=== PATIENT | male | born 1955 | race Two or more races ===

== ENCOUNTER 2024-04-16 15:47 | Outpatient (CLI) | payer OTHER | END 2024-04-16 15:49 | disposition home or self-care (01) | LOC: LAB 15:47 | PROVIDERS: ATTEND Urology | DX: R97.20 Elevated prostate specific antigen [PSA] (principal) ==

== ENCOUNTER 2024-04-23 07:10 | Outpatient (CLI) | payer OTHER | END 2024-04-23 07:27 | disposition home or self-care (01) | LOC: SONOGRAMA 07:10 | PROVIDERS: ATTEND Urology | DX: C61 Malignant neoplasm of prostate (principal); N40.1 Benign prostatic hyperplasia with lower urinary tract symptoms; R97.20 Elevated prostate specific antigen [PSA] ==

== ENCOUNTER 2024-06-08 07:21 | Outpatient (CLI) | payer OTHER | END 2024-06-08 07:22 | disposition home or self-care (01) | LOC: NUCLEAR 07:21 | PROVIDERS: ATTEND Urology | DX: C61 Malignant neoplasm of prostate (principal) ==

== ENCOUNTER 2025-01-14 07:15 | Outpatient (CLI) | payer OTHER | END 2025-01-14 07:16 | disposition home or self-care (01) | LOC: NUCLEAR 07:15 | PROVIDERS: ATTEND Internal Medicine | DX: S42.92XA Fracture of left shoulder girdle, part unspecified, initial encounter for closed fracture (principal) | CPT/HCPCS: 78315; A9503 ==

== ENCOUNTER 2025-01-31 11:15 | Outpatient (CLI) | payer OTHER | END 2025-01-31 11:17 | disposition home or self-care (01) | LOC: NUCLEAR 11:15 | PROVIDERS: ATTEND Internal Medicine | DX: M81.0 Age-related osteoporosis without current pathological fracture (principal) ==

== ENCOUNTER 2025-01-31 13:17 | Outpatient (CLI) | payer OTHER | END 2025-01-31 13:19 | disposition home or self-care (01) | LOC: MRI 13:17 | PROVIDERS: ATTEND Internal Medicine | DX: M25.512 Pain in left shoulder (principal) | CPT/HCPCS: 73219 ==